=== PATIENT | female | born 1995 | race Caucasian/White ===

== ENCOUNTER 2018-09-12 17:02 | Emergency (ER) | payer BC ==
--- NOTE | 2018-09-12 17:09 | EDPHY ---
H & P Stated Complaint: Tightness in chest x several days;on antibx for UTI Time Seen by Provider: 09/12/18 17:09 HPI/ROS: CHIEF COMPLAINT: Central chest discomfort HISTORY OF PRESENT ILLNESS: Patient presents the ED with a 1 day history of central chest discomfort. She denies pleuritic chest pain. She denies any fever, cough or congestion. She is currently on day 7 of Macrobid for urinary tract infection. She reports her symptoms of dysuria have improved. She denies any flank pain or vomiting. The patient denies any history of fall or trauma. She denies asymmetric calf pain or swelling. The patient does state that her symptoms are slightly worsened with swallowing. REVIEW OF SYSTEMS: A comprehensive 10 point review of systems is otherwise negative aside from elements mentioned in the history of present illness. Source: Patient - Personal History LMP (Females 10-55): Extended Cycle BCP/Inj Current Tetanus Diphtheria and Acellular Pertussis (TDAP): Yes - Medical/Surgical History Hx Asthma: No Hx Chronic Respiratory Disease: No Hx Diabetes: No Hx Cardiac Disease: No Hx Renal Disease: No Hx Cirrhosis: No Hx Alcoholism: No Hx HIV/AIDS: No Hx Splenectomy or Spleen Trauma: No Other PMH: healthy - Social History Smoking Status: Never smoked - Physical Exam Exam: General Appearance: Alert, no distress Eyes: Pupils equal and round no pallor or injection ENT, Mouth: Mucous membranes moist Respiratory: There are no retractions, lungs are clear to auscultation, minimal sternal tenderness Cardiovascular: Regular rate and rhythm Gastrointestinal: Abdomen is soft and nontender, no masses, bowel sounds normal Neurological: 5/5 strength all 4 extremities Skin: Warm and dry, no rashes Musculoskeletal: Neck is supple nontender Extremities: symmetrical, full range of motion, specifically no evidence of DVT Constitutional: Initial Vital Signs Temperature (C) 36.7 C 09/12/18 17:03 Heart Rate 92 09/12/18 17:03 Respiratory Rate 18 09/12/18 17:03 Blood Pressure 138/77 H 09/12/18 17:03 O2 Sat (%) 98 09/12/18 17:03 O2 Delivery Mode Room Air Allergies/Adverse Reactions: amoxicillin Allergy (Verified 09/12/18 17:02) clindamycin Allergy (Verified 09/12/18 17:06) Home Medications: Medication Instructions Recorded Nitrofurantoin Macrobid [Macrobid] 100 mg PO 09/12/18 Medical Decision Making - Diagnostics EKG Interpretation: EKG: Complete interpretation has been separately recorded in the [email or web address] archive. Summary impression: Sinus rhythm, rate 83, no ST segment elevation or depression. Imaging Results: Chest x-ray PA lateral: Images interpreted by myself. Impression: Normal ED Course/Re-evaluation: The patient presents to the ED with some sternal chest discomfort. It is slightly reproducible in also worsened with swallowing. The patient has no risk factors for cardiac disease. She has no complaints of pleuritic chest pain or dyspnea. She has no clinical evidence of a DVT noted on exam. Patient's EKG demonstrates no evidence of ischemia or arrhythmia. Patient was given a GI cocktail with minimal improvement of her symptoms. This point time I do favor costochondritis is likely etiology of her symptoms. I do feel it is reasonable to have her use ibuprofen 600 mg 3 times a day. The patient tells me she did workout on and developed symptoms after that workout. I think that likely precipitated her costochondritis. The patient has been informed to return to the emergency department for any markedly worsening symptoms, difficulty breathing, painful respiration or other concerns. Differential Diagnosis: Differential diagnosis considered includes costochondritis, esophageal spasm, pneumothorax, pericarditis - Data Points Medications Given: Discontinued Medications Al Hydroxide/Mg Hydroxide (Maalox Susp) 30 ml PO ONCE ONE Stop: 09/12/18 17:14 Last Admin: 09/12/18 17:22 Dose: 30 ml Hyoscyamine Sulfate (Levsin, Hyomax-Sl) 0.25 mg PO ONCE ONE Stop: 09/12/18 17:14 Last Admin: 09/12/18 17:21 Dose: 0.25 mg Lidocaine (Lidocaine 2% Viscous) 15 ml PO ONCE ONE Stop: 09/12/18 17:14 Last Admin: 09/12/18 17:22 Dose: 15 ml Departure - Departure Disposition: Home, Routine, Self-Care Clinical Impression: Costochondritis, acute Condition: Good Instructions: Costochondritis (ED) Additional Instructions: 1. Take Ibuprofen or Motrin 600 mg by mouth three times a day. 2. Return to the emergency department for any worsening symptoms, difficulty breathing, painful respirations, fever, cough or other concerns. Referrals: [facility] [Clinic] - As per Instructions
[2018-09-12] MEDS ORDERED: HYOSCYAMINE SULFATE 0.125 MG TAB PO ONE (17:13)
[2018-09-12] MEDS ORDERED: LIDOCAINE 2% VISCOUS 15 ML UDCUP PO ONE (17:13)
[2018-09-12] MEDS ORDERED: MAG HYDROX/AL HYDROX/SIMETH 30 ML UDCUP PO ONE (17:13)
--- NOTE | 2018-09-12 17:21 | CPEKG ---
Test Reason : OPEN Blood Pressure : / mmHG Vent. Rate : 083 BPM Atrial Rate : 083 BPM P-R Int : 115 ms QRS Dur : 092 ms QT Int : 357 ms P-R-T Axes : 067 071 022 degrees QTc Int : 420 ms Sinus rhythm Confirmed by Chacho Muñoz ([id number]) on 09/12/2018 5:20:48 PM Referred By: Confirmed By:Chacho Muñoz
[2018-09-12 18:00] VITALS: BP 123/74
== END 2018-09-12 18:09 | disposition home or self-care (01) ==
DX: M94.0 Chondrocostal junction syndrome [Tietze] (principal)